=== PATIENT | male | born 1990 | race African-American/Black ===

== ENCOUNTER 2025-01-11 06:18 | Emergency (ER) | payer SELFPAY ==
--- NOTE | 2025-01-11 | ECG_ITS ---
Test Reason : CHEST PAIN Blood Pressure : */* mmHG Vent. Rate : 101 BPM Atrial Rate : 101 BPM P-R Int : 124 ms QRS Dur : 86 ms QT Int : 338 ms P-R-T Axes : 78 234 45 degrees QTcB Int : 438 ms Poor data quality Sinus tachycardia Right atrial enlargement Indeterminate axis Pulmonary disease pattern Abnormal ECG No previous ECGs available Repeat EKG Referred By: Generic ED Physician Electronically Signed By: ROSEMARY ASHLEY MD
--- NOTE | ~2025-01-11 | XR_ITS ---
CLINICAL HISTORY: shortness of breath chest pain 2 view chest x-ray Comparison: None Findings: Lungs are well inflated. Mediastinal contours, cardiac silhouette, and pulmonary vasculature are within normal limits. No focal areas of consolidation. No pleural effusion or pneumothorax. IMPRESSION: 1. No acute findings. This document has been electronically signed by: Chinedu Linton MD on 01/11/2025 06:52:02
[2025-01-11 06:21] VITALS: BP 156/87; PULSE 111; RESP 20; TEMP 36.7; O2SAT 95; BMI 28.2
[2025-01-11 07:20] LABS: Influenza A PCR NEGATIVE (Negative); Influenza B PCR NEGATIVE (Negative); Resp Syncy Virus RNA Qual PCR NEGATIVE (Negative); SARS COV2 PCR INHOUSE NEGATIVE (Negative)
--- NOTE | 2025-01-11 11:52 | ED_ITS ---
HPI - Asthma General Chief Complaint: Asthma Stated Complaint: asthmatic shortness of breath Time Seen by Provider: 01/11/25 11:34 Source: patient, RN notes reviewed and old records reviewed Mode of arrival: ambulatory History of Present Illness ED Provider: Cris Beckman PA-C HPI Narrative: 34-year-old male with a past medical history of asthma, presenting to ED complaining of dry cough, SOB, chest tightness x few days. Use rescue inhaler at home without relief. + multiple sick contacts, works in school. 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 NSAIDS (Non-Steroidal Allergy Unknown UNKNOWN Unverified 08/17/20 16:02 Anti-Inflamma [NSAIDS] all over the counter Allergy Unknown Unknown Uncoded 01/11/25 06:24 medicatio Goitrogenic foods include Allergy Unknown contraindicated Uncoded 02/21/17 00:00 rachel - d/t thyromegaly influenza vaccine Allergy Unknown 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 Source: old records reviewed Social History Social History Advance Directives: No Advance Directives Information Provided: Yes Do you have a plan to hurt others: No Plan Physical Exam 2 Vital Signs: Vital Signs: Last Vital Signs Temp 98.1 F 01/11/25 06:21 Pulse 103 H 01/11/25 16:20 Resp 20 01/11/25 16:20 BP 156/87 H 01/11/25 06:21 Pulse Ox 95 01/11/25 06:21 O2 Del Method Room Air 01/11/25 06:21 BMI result Body Mass Index 28.2 Const: General: cooperative, healthy appearing and no acute distress O rientation/consciousness: patient oriented x3 Limitations: no limitations HEENT: Head: Yes normal to inspection and Yes atraumatic Ears: hearing grossly normal bilaterally General nose exam: Normal external nose present Face and sinus: Yes normal facial exam Eyes: General: appearance normal, both eyes and all related structures EOM: EOMs intact bilaterally Neck: Neck: Yes normal visual inspection and Yes no meningeal signs Resp: Effort & Inspection: normal respiratory effort, audible wheezes and no respiratory distress Auscultation: wheezes expiratory wheezes and throughout Cardio: Rate: regular rate and tachycardic Heart sounds: S1 normal heart sound present and S2 normal heart sound present Skin: Rashes: no rashes Wounds: no wounds Neuro: General: patient oriented x3, tone normal and no meningeal signs C ranial nerves: Yes CN's II-XII intact bilaterally Gait exam (Neuro): Normal gait present Extrem: General: Yes normal to inspection Course Course Course Narrative: 1156--viral testing negative -CXR unremarkable > 1335--on re-evaluation diffuse expiratory wheeze still appreciated. Will give IV magnesium and re-evaluate. -1602--mild leukocytosis of 13.4. Troponin negative. On re-evaluation patient reports mild symptomatic improvement. Lungs with better air movement, but still residual end expiratory wheeze. Discussed admission with patient however he is hesitant/would like to avoid > we will give additional neb treatment and re- evaluate -1621---potassium slightly low to 3.1. > PO repletion ordered -1638-- on re-eval lungs CTA. patient feels comfortable for d/c home at this time Results discussed with patient including worrisome signs and symptoms and strict return precautions, and when to return to the emergency department. They verbalized understanding and feel safe for discharge at this time. Medications Administered Discontinued Medications Generic Name Dose Route Start Last Admin Trade Name Freq PRN Reason Stop Dose Admin Albuterol/Ipratropium 3 ml 01/11/25 16:16 01/11/25 16:20 Albuterol/Iprat 2.5/0.5mg 3 Ml Ampul.Neb INHALE 01/11/25 16:17 3 ml ONCE ONE Administration Albuterol Sulfate 5 mg/ 0 mg 01/11/25 11:57 01/11/25 12:00 Albuterol/Ipratropium 3 ml INHALE 01/11/25 11:58 1 each ONCE ONE Administration Albuterol Sulfate 2.5 mg/ 0 mg 01/11/25 13:26 01/11/25 13:33 Albuterol/Ipratropium 3 ml INHALE 01/11/25 13:27 1 dose ONCE ONE Administration Magnesium Sulfate 2 gm in 50 mls @ 25 mls/hr 01/11/25 13:35 01/11/25 16:12 Magnesium Sulfate/H2o IV 01/11/25 15:34 Infused ONCE ONE Infusion Methylprednisolone Sodium Succinate 60 mg 01/11/25 11:39 01/11/25 12:24 Methylprednisolone Sod Succ 125 Mg/2 Ml Vial IVPUSH 01/11/25 11:40 60 mg ONCE ONE Administration Medical Decision Making Medical Decision Making [facility] Narrative: 1154: 34-year-old male with a past medical history of asthma, presenting to ED complaining of dry cough, SOB, chest tightness x few days. Use rescue inhaler at home without relief. 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 Concern for asthma exacerbation vs viral illness vs pneumonia vs bronchitis. Lower suspicion for acute ACS/PE at this time. Low suspicion for severe sepsis Plan: Labs, EKG, CXR, ED bronch protocol, IV Solu-Medrol, re-evaluate Please refer to course for remaining clinical decision making, interpretation of labs/imaging results, and discussions with consultants and/or family members. Differential Diagnosis Differential Diagnoses: The differential diagnosis associated with the presentation includes As above Admission/Observation Consideration of admission/observation: Escalation of care including admission/observation considered Lab Data [facility] Lab Attestation statement: I reviewed the patient's lab results. 01/11/25 13:51 01/11/25 13:51 Labs: Lab Results 01/11/25 01/11/25 Range/Units 06:33 13:51 WBC 13.4 H (4.8-10.8) X10*3/uL RBC 5.38 (4.60-5.80) X10*6/uL Hgb 14.9 (14.0-18.0) g/dl Hct 44.5 (42.0-52.0) % MCV 82.7 (80.0-98.0) fL MCH 27.7 (27.0-33.0) pg MCHC 33.5 (31.0-36.0) g/dl RDW 13.0 (11.0-16.0) % Plt Count 284 (160-400) X10*3/uL MPV 9.9 (9.4-12.4) fL Immature Gran % (Auto) 0.3 (0.0-0.4) % Neut % (Auto) 78.4 H (45-73) % Lymph % (Auto) 12.1 L (20-40) % [place] % (Auto) 5.6 (2-11) % Eos % (Auto) 3.1 (0-4) % Baso % (Auto) 0.5 (0-2) % Lymph # (Auto) 1.6 (1.2-4.9) X10*3/uL [place] # (Auto) 0.8 (0.1-1.2) X10*3/uL Eos # (Auto) 0.4 (0.0-0.4) X10*3/uL Baso # (Auto) 0.1 (0.0-0.2) X10*3/uL Abs Immat Gran (auto) 0.04 H (0.00-0.03) X10*3/uL Absolute Neuts (auto) 10.5 H (2.0-8.3) x10*3/uL Absolute Nucleated RBC 0.000 (0.0-0.012) X10*3/uL Nucleated RBC % (auto) 0.0 (0.0-0.2) /100WBC Sodium 141 (135-145) mmol/L Potassium 3.1 L (3.3-5.1) mmol/L Chloride 105 (96-108) mmol/L Carbon Dioxide 24 (22-29) mmol/L Anion Gap 15 (12-20) BUN 9 (9-16) mg/dL Creatinine 0.80 (0.5-1.4) mg/dL Estim Creat Clear Calc 130.0 Estimated GFR > 60 Random Glucose 121 H (60-115) mg/dL Calcium 9.2 (8.4-10.2) mg/dL Troponin I High Sens < 2.7 (<3.5-35.0) ng/L Influenza Type A (PCR) NEGATIVE (Negative) Influenza Type B (PCR) NEGATIVE (Negative) RSV RNA Qual (PCR) NEGATIVE (Negative) SARS-CoV-2 RNA (RT-PCR) NEGATIVE (Negative) Independent Interpretation I performed an independent interpretation of an: EKG (My interpretation: EKG sinus tachycardia rate of 101. Artifact present. No previous to compare. No STEMI) and Plain X-Ray Radiology Impression Discussion of test interpretation with radiology: I have reviewed the radiologist's reading. External Record Review External record reviewed: Inpatient record, Office record, Outpatient record, Prior outpatient labs, Prior outpatient radiology, Primary care record and Outside ED record Tests considered The following testing was considered but not selected: As above Prescription Management I considered prescription management with: Pain Medication and Antibiotic Chronic Conditions Patient?s care impacted by: Other (Asthma) Social Determinants Patient?s care significantly limited by Social Determinants of Health including: Other Social Determinant of Health Critical Care Time Critical Care Time Critical Care Time: Yes Total Critical Care Time: 35 Attestation: I have personally provided critical care time exclusive of time spent on separately billable procedures. Time includes review of lab data, radiology results, discussion with consultants, and monitoring for potential decompensation. Intervention performed as documented. Discharge Plan Discharge Clinical Impression: Asthma with acute exacerbation Patient Disposition: Home, Self-Care Instructions: Asthma (DC) Additional Instructions: your chest x-ray was unremarkable You tested negative for COVID, flu, RSV Your potassium was mildly low today. We gave you repletion Your blood work was otherwise reassuring Please continue to use your rescue inhaler and neb machine at home Take prednisone as prescribed until completion Follow up with your doctor and hopefully If her symptoms persist or worsen you constant worsening chest pain, shortness of breath or fever return to the ED Referrals: Physician,Unknown J [Primary Care Provider] - 3 days Print Language: Dutch
[2025-01-11] MEDS: Albuterol Sulfate 5 MG, Albuterol/Iprat 2.5/0.5MG 3 ML 3 ML INHALE (12:00)
[2025-01-11 12:01] VITALS: PULSE 95; RESP 22; O2SAT 95
[2025-01-11] MEDS: methylPREDNISolone Sod Succ 125 MG/2 ML VIAL 60 MG IVPUSH (12:24)
[2025-01-11 13:33] VITALS: PULSE 103; RESP 22; O2SAT 97
[2025-01-11] MEDS: Albuterol Sulfate 2.5 MG, Albuterol/Iprat 2.5/0.5MG 3 ML 3 ML INHALE (13:33)
[2025-01-11] MEDS: Magnesium Sulfate/H2O 2 GM/50 ML PIGGYBACK IV (13:45)
[2025-01-11 13:58] LABS: MANUAL DIFF FLAG NO
[2025-01-11 13:59] LABS: Basophils Absolute Auto 0.1 X10*3/uL (0.0-0.2); Basophils Percent Auto 0.5 % (0-2); Eosinophils Absolute Auto 0.4 X10*3/uL (0.0-0.4); Eosinophils Percent Auto 3.1 % (0-4); Hematocrit 44.5 % (42.0-52.0); Hemoglobin 14.9 g/dl (14.0-18.0); Imm Gran Abs Auto 0.04 X10*3/uL (0.00-0.03); Imm Gran Pct Auto 0.3 % (0.0-0.4); Lymphocytes Absolute Auto 1.6 X10*3/uL (1.2-4.9); Lymphocytes Percent Auto 12.1 % (20-40); Mean Corpuscular HGB Conc 33.5 g/dl (31.0-36.0); Mean Corpuscular Hemoglobin 27.7 pg (27.0-33.0); Mean Corpuscular Volume 82.7 fL (80.0-98.0); Mean Platelet Volume 9.9 fL (9.4-12.4); Monocytes Absolute Auto 0.8 X10*3/uL (0.1-1.2); Monocytes Percent Auto 5.6 % (2-11); Neutrophils Absolute Auto 10.5 x10*3/uL (2.0-8.3); Neutrophils Percent Auto 78.4 % (45-73); Platelet Count 284 X10*3/uL (160-400); Red Blood Count 5.38 X10*6/uL (4.60-5.80); White Blood Count 13.4 X10*3/uL (4.8-10.8)
[2025-01-11 14:22] LABS: Troponin-I High Sensitivity < 2.7 ng/L (<3.5-35.0)
[2025-01-11 16:14] LABS: Anion Gap 15 (12-20); Blood Urea Nitrogen 9 mg/dL (9-16); Calcium 9.2 mg/dL (8.4-10.2); Carbon Dioxide 24 mmol/L (22-29); Chloride 105 mmol/L (96-108); Estimated Glomerular Filt Rate > 60; Glucose Random 121 mg/dL (60-115); Potassium 3.1 mmol/L (3.3-5.1); Sodium 141 mmol/L (135-145)
[2025-01-11 16:20] VITALS: PULSE 103; RESP 20; O2SAT 97
[2025-01-11] MEDS: Albuterol/Iprat 2.5/0.5MG 3 ML AMPUL.NEB INHALE (16:20)
[2025-01-11] MEDS: Potassium Chloride Packet 20 MEQ PACKET 60 MEQ PO (17:06)
[2025-01-11 17:20] VITALS: BP 130/60; PULSE 103; RESP 20; TEMP -17.7; TEMP 0
== END 2025-01-11 17:21 | disposition home or self-care (01) ==
PROVIDERS: Physician Assistant; Emergency Provider Emergency Medicine
DX: J45.901 Unspecified asthma with (acute) exacerbation (principal); R06.02 Shortness of breath; R05.9 Cough, unspecified; R07.89 Other chest pain; R00.0 Tachycardia, unspecified; Z03.818 Encounter for observation for suspected exposure to other biological agents ruled out; Z79.899 Other long term (current) drug therapy
CPT/HCPCS: 0241U; 36415; 71046; 80048; 84484; 85025; 93005; 94640; 96365; 96366; 96375; 99284; 99285; J2919; J3475

== ENCOUNTER → 2025-01-11 06:30 | Outpatient (BNV) | payer SELFPAY | PROVIDERS: Visit Provider Radiology Diagnostic Radiology | DX: R06.02 Shortness of breath (principal); R07.9 Chest pain, unspecified | CPT/HCPCS: 71046 ==

== ENCOUNTER → 2025-01-11 06:31 | Outpatient (BNV) | payer SELFPAY | PROVIDERS: Visit Provider Internal Medicine Cardiovascular Disease | DX: R07.9 Chest pain, unspecified (principal); R06.02 Shortness of breath | CPT/HCPCS: 93010 ==